=== PATIENT | male | born 1960 | race Two or more races ===

== ENCOUNTER 2018-06-18 06:06 | Inpatient (IN) | payer OTHER ==
[~2018-06-18] VITALS: Ht 170.2 cm; Wt 89.8 kg
[2018-06-18] VITALS (8 sets, daily range): BP systolic 91–117; BP diastolic 54–69; Ht 170.2 cm; Wt 89.8 kg
[2018-06-18] MEDS ORDERED: ACYCLOVIR400 MG PO (06:38)
[2018-06-18] MEDS ORDERED: AMLODIPINE BESY10 M2 PO (06:39)
[2018-06-18] MEDS ORDERED: ATORVASTATIN CA40 M1 PO (06:39)
[2018-06-18] MEDS ORDERED: ASPIR 8181 MG PO (06:39)
[2018-06-18] MEDS ORDERED: CALCITONIN IH (06:43)
[2018-06-18] MEDS ORDERED: MASON NATURAL1000 IU PO (06:45)
[2018-06-18] MEDS ORDERED: DEX PO (06:46)
[2018-06-18] MEDS ORDERED: LANTUS100 U/ML SC (06:47)
[2018-06-18 06:48] LABS: PLATELET COUNT 134 x10^3mcL (130-400)
[2018-06-18] MEDS ORDERED: RELION HUMUL100 U/M2 SQ (06:48)
[2018-06-18] MEDS ORDERED: REVLIMID25 MG PO (06:51)
[2018-06-18] MEDS ORDERED: MOM PO (06:51)
[2018-06-18] MEDS ORDERED: LATANOPROST2.5 ML OP (06:51)
[2018-06-18] MEDS ORDERED: REG10 PO (06:52)
[2018-06-18] MEDS ORDERED: METOPROLOL TART25 M1 PO (06:53)
[2018-06-18] MEDS ORDERED: MORPHINE SULFAT30 M6 PO (06:54)
[2018-06-18] MEDS ORDERED: GOOD SENSE OMEP20 MG PO (06:55)
[2018-06-18] MEDS ORDERED: PAMELOR10 MG PO (06:55)
[2018-06-18] MEDS ORDERED: TIMOPTIC-XE OCUM5 M2 OP (06:56)
[2018-06-18 06:58] LABS: CALCIUM 7.2 mg/dL (8.5-10.1); CARBON DIOXIDE 21.7 mmol/L (21-32); CHLORIDE SERUM 102 mmol/L (98-107); GFR1 > 60 mL/min; GLUCOSE SERUM 159 mg/dL (74-106); POTASSIUM SERUM 3.3 mmol/L (3.5-5.1); SODIUM SERUM 136 mmol/L (136-145)
[2018-06-18] MEDS ORDERED: NASINH (06:58)
[2018-06-18 07:03] LABS: ALKALINE PHOSPHATASE 94 U/L (46-116); ALT/SGPT 22 U/L (16-63); AST/SGOT 30 U/L (15-37); BILIRUBIN TOTAL 0.4 mg/dL (0.20-1.00); TOTAL PROTEIN, SERUM 6.8 g/dL (6.4-8.2)
[2018-06-18 07:06] LABS: ALBUMIN 1.9 g/dL (3.4-5.0); RED CELL DISTRIBUTION WIDTH 17.2 % (11.5-14.5)
[2018-06-18 08:03] LABS: MONOCYTE 52 % (0-7); SEGMENTED NEUTROPHILS 40 % (37-75)
[2018-06-18 08:04] LABS: BAND NEUTROPHIL 8 % (0-10); PLATELET MORPHOLOGY PLATELETS DECREASED; rbc morphology (normal/abnorm) ABNORMAL (NORMAL)
[2018-06-18 12:26] LABS: microscopic required? NO
[2018-06-18 12:43] LABS: UA SPECIFIC GRAVITY 1.025 (1.005-1.035); urine erythrocyte NEGATIVE (NEGATIVE)
[2018-06-19 05:56] VITALS: BP 108/63
[2018-06-19 06:04] LABS: PLATELET COUNT 135 x10^3mcL (130-400)
[2018-06-19 06:28] LABS: CALCIUM 7.3 mg/dL (8.5-10.1); CARBON DIOXIDE 22.4 mmol/L (21-32); CHLORIDE SERUM 106 mmol/L (98-107); CREATININE SERUM 0.7 mg/dL (0.7-1.3); GFR1 > 60 mL/min; GLUCOSE SERUM 188 mg/dL (74-106); POTASSIUM SERUM 3.7 mmol/L (3.5-5.1); SODIUM SERUM 137 mmol/L (136-145)
[2018-06-19 06:54] LABS: RED CELL DISTRIBUTION WIDTH 17.7 % (11.5-14.5)
[2018-06-19 09:22] VITALS: BP 111/59
[2018-06-19 13:16] VITALS: BP 121/68
[2018-06-19 13:43] LABS: BAND NEUTROPHIL 28 % (0-10); BASOPHIL 0 % (0-2); MONOCYTE 15 % (0-7); PLATELET MORPHOLOGY PLATELETS DECREASED; SEGMENTED NEUTROPHILS 57 % (37-75); rbc morphology (normal/abnorm) ABNORMAL (NORMAL)
[2018-06-19 16:25] VITALS: BP 116/63
[2018-06-19 20:01] VITALS: BP 121/69
[2018-06-19 21:26] VITALS: BP 116/64
[2018-06-20 05:15] VITALS: BP 125/76
[2018-06-20 06:25] LABS: PLATELET COUNT 150 x10^3mcL (130-400)
[2018-06-20 06:40] LABS: BASOPHIL % 0 % (0-2); RED CELL DISTRIBUTION WIDTH 18.4 % (11.5-14.5)
[2018-06-20 06:42] LABS: CALCIUM 7.5 mg/dL (8.5-10.1); CARBON DIOXIDE 26.3 mmol/L (21-32); CHLORIDE SERUM 105 mmol/L (98-107); CREATININE SERUM 0.6 mg/dL (0.7-1.3); GFR1 > 60 mL/min; GLUCOSE SERUM 205 mg/dL (74-106); POTASSIUM SERUM 3.6 mmol/L (3.5-5.1); SODIUM SERUM 136 mmol/L (136-145)
[2018-06-20 09:50] VITALS: BP 120/67
[2018-06-20 10:29] VITALS: BP 121/71
[2018-06-20 14:31] VITALS: BP 125/70
[2018-06-20 17:23] VITALS: BP 122/66
[2018-06-20 18:33] LABS: CALCIUM 7.5 mg/dL (8.5-10.1); CARBON DIOXIDE 25.8 mmol/L (21-32); CHLORIDE SERUM 106 mmol/L (98-107); CREATININE SERUM 0.8 mg/dL (0.7-1.3); GFR1 > 60 mL/min; GLUCOSE SERUM 243 mg/dL (74-106); POTASSIUM SERUM 3.6 mmol/L (3.5-5.1); SODIUM SERUM 137 mmol/L (136-145)
[2018-06-20 21:31] VITALS: BP 133/76
[2018-06-21 06:00] VITALS: BP 135/77
[2018-06-21 10:26] VITALS: BP 130/70
[2018-06-21 14:03] VITALS: BP 147/76
[2018-06-21 17:32] VITALS: BP 136/75
[2018-06-21 20:57] VITALS: BP 136/75
[2018-06-22 05:19] VITALS: BP 146/79
[2018-06-22 06:35] VITALS: BP 135/76
[2018-06-22 07:36] LABS: CALCIUM 7.6 mg/dL (8.5-10.1); CARBON DIOXIDE 24.5 mmol/L (21-32); CHLORIDE SERUM 103 mmol/L (98-107); CREATININE SERUM 0.6 mg/dL (0.7-1.3); GFR1 > 60 mL/min; GLUCOSE SERUM 209 mg/dL (74-106); POTASSIUM SERUM 4.3 mmol/L (3.5-5.1); SODIUM SERUM 134 mmol/L (136-145)
[2018-06-22 07:40] LABS: PLATELET COUNT 193 x10^3mcL (130-400)
[2018-06-22 07:41] LABS: BASOPHIL % 0 % (0-2)
[2018-06-22 08:40] VITALS: BP 159/93
[2018-06-22 10:47] VITALS: BP 159/93
[2018-06-22 12:53] VITALS: BP 159/93
[2018-06-22 13:07] VITALS: BP 140/79
== END 2018-06-22 17:30 | disposition other institution (70) | DRG 871 ==
LOC: ED 06:06 → DU 07:41
PROVIDERS: Emergency Medicine; Internal Medicine
DX: A41.9 Sepsis, unspecified organism (principal); R65.21 Severe sepsis with septic shock; E43 Unspecified severe protein-calorie malnutrition; J96.01 Acute respiratory failure with hypoxia; J69.0 Pneumonitis due to inhalation of food and vomit; C90.00 Multiple myeloma not having achieved remission; D61.818 Other pancytopenia; C78.00 Secondary malignant neoplasm of unspecified lung; C79.51 Secondary malignant neoplasm of bone; J44.1 Chronic obstructive pulmonary disease with (acute) exacerbation; E11.65 Type 2 diabetes mellitus with hyperglycemia; E87.6 Hypokalemia; T45.1X5A Adverse effect of antineoplastic and immunosuppressive drugs, initial encounter; D63.0 Anemia in neoplastic disease; I10 Essential (primary) hypertension; Z87.891 Personal history of nicotine dependence; Y92.89 Other specified places as the place of occurrence of the external cause; Z92.21 Personal history of antineoplastic chemotherapy; Z88.0 Allergy status to penicillin; Z68.27 Body mass index [BMI] 27.0-27.9, adult
CPT/HCPCS: 36600; 82962; 83880; 94150; J1956; J2920; J3370; J3490; J7030; J7040; J7050; J7626; J7644; J8597; Q0092